=== PATIENT | male | born 1960 | race Caucasian/White ===

== ENCOUNTER 2023-08-21 22:42 | Emergency (ER) | payer OTHER ==
[2023-08-21] MEDS ORDERED: Amoxicillin/Potassium Clav 875 MG TAB ONE (23:19)
[2023-08-21] MEDS ORDERED: Ibuprofen 800 MG TAB ONE (23:19)
[2023-08-21] MEDS ORDERED: HYDROcodone/Acetaminophen 10/325 mg Tablet ONE (23:20)
== END 2023-08-21 23:37 | disposition home or self-care (01) ==
LOC: NAV ERS 22:42
DX: S91.152A Open bite of left great toe without damage to nail, initial encounter (principal); I10 Essential (primary) hypertension; Z79.899 Other long term (current) drug therapy; W59.11XA Bitten by nonvenomous snake, initial encounter
CPT/HCPCS: 99283